=== PATIENT | female | born 1965 | race Caucasian/White ===

== ENCOUNTER 2020-03-06 10:18 | Outpatient (CLI) | payer OTHER, SELFPAY ==
[2020-03-06 10:54] LABS: Basophils Absolute Auto 0.1 K/mm3 (0.0-0.1); Eosinophils Absolute Auto 0.2 K/mm3 (0-0.3); Hematocrit 41.1 % (37.0-47.0); Hemoglobin 14.6 g/dL (12.0-15.0); Immature Granulocyte Absolute 0.02 K/mm3 (0.00-0.031); Immature Granulocyte Percent A 0.3 % (0-0.5); Lymphocytes Percent Auto 31.5 % (18.3-44.2); Mean Corpuscular HGB Conc 35.5 g/dl (32-36); Mean Corpuscular Hemoglobin 31.9 pg (26-34); Mean Corpuscular Volume 89.7 fl (80-100); Mean Platelet Volume 10.4 fl (7.4-10.4); Monocytes Absolute Auto 0.5 K/mm3 (0.1-0.6); Monocytes Percent Auto 6.6 % (2.6-8.5); Neutrophils Percent Auto 57.6 % (45.5-73.1); Platelet Count Result 295 k/mm3 (150-375); Red Blood Count 4.58 M/mm3 (4.2-5.4); Red Cell Distribution Width 13.3 % (11.5-14.5)
[2020-03-06 11:02] LABS: Hemoglobin A1C 5.3 % (<5.7)
[2020-03-06 11:06] LABS: Atypical Lymphocytes Present; Platelet Estimate Adequate (Adequate)
[2020-03-06 11:07] LABS: Alanine Aminotransferase 23 U/L (4-35); Albumin Level 4.3 g/dL (3.5-5.1); Alkaline Phosphatase 89 U/L (38-126); Anion Gap 7 mmol/L (8-16); Aspartate Amino Transferase 22 U/L (14-36); Bilirubin,Total 0.3 mg/dL (0.2-1.3); Blood Urea Nitrogen 15 mg/dL (7-17); Calcium 10.1 mg/dL (8.4-10.2); Carbon Dioxide 27 mmol/L (22-30); Chloride 106 mmol/L (98-107); Cholesterol 198 mg/dL (0-200); Estimated Glomerular Filt Rate > 60; Glucose 95 mg/dL (65-105); HDL Direct 38 mg/dL; Potassium 4.2 mmol/L (3.4-5.0); Sodium 140 mmol/L (137-145); Triglycerides 208 mg/dL (<150)
[2020-03-06 11:18] LABS: LDL Cholesterol Direct 116 mg/dL
[2020-03-06 11:36] LABS: Free T4 Free Thyroxine 0.69 ng/mL (0.78-2.19); Thyroid Stimulating Hormone 0.259 uIU/mL (0.465-4.680); Vitamin D 25 Hydroxy 47.6 ng/mL
[2020-03-06 11:50] LABS: Thyroid Stimulating Hormone Reflex 0.235 uIU/mL (0.465-4.68)
[2020-03-06 14:13] LABS: Free T4 Free Thyroxine Reflex 0.78 ng/dL (0.78-2.19)
[2020-03-06 14:54] LABS: Total Triiodothyronine (T3) 1.35 NG/ML (0.97-1.69)
== END 2020-03-06 10:19 | disposition home or self-care (01) ==
PROVIDERS: Visit Provider Obstetrics & Gynecology
DX: K92.1 Melena (principal); Z13.228 Encounter for screening for other metabolic disorders; Z13.29 Encounter for screening for other suspected endocrine disorder; Z13.0 Encounter for screening for diseases of the blood and blood-forming organs and certain disorders involving the immune mechanism
CPT/HCPCS: 36415; 80053; 80061; 82306; 83036; 84439; 84443; 84480; 85025

== ENCOUNTER 2020-03-16 16:23 | Outpatient (CLI) | payer OTHER, SELFPAY ==
[2020-03-22 12:47] LABS: Prolactin 6.5 ng/mL (***)
== END 2020-03-16 16:24 | disposition home or self-care (01) ==
LOC: ANHLAB 16:25
PROVIDERS: Visit Provider Obstetrics & Gynecology
DX: R68.89 Other general symptoms and signs (principal)
CPT/HCPCS: 36415; 84146

== ENCOUNTER 2020-03-28 10:33 | Outpatient (CLI) | payer OTHER, SELFPAY ==
[2020-03-28 11:47] LABS: Erythrocyte Sedimentation Rate 22 mm/hr (0-20)
[2020-03-28 11:58] LABS: Total Triiodothyronine (T3) 1.34 NG/ML (0.97-1.69)
[2020-03-28 12:08] LABS: Free T4 Free Thyroxine 0.84 ng/mL (0.78-2.19)
[2020-04-02 14:13] LABS: Thyrotropin Receptor Antibody <1.00 IU/L (<=2.00)
[2020-04-03 06:06] LABS: Thyroid Peroxidase Antibodies <1 IU/mL (<9)
== END 2020-03-28 10:34 | disposition home or self-care (01) ==
LOC: ANHLAB 10:35
PROVIDERS: Visit Provider Internal Medicine Endocrinology, Diabetes & Metabolism
DX: E05.90 Thyrotoxicosis, unspecified without thyrotoxic crisis or storm (principal)
CPT/HCPCS: 36415; 83519; 84439; 84443; 84480; 85652; 86376

== ENCOUNTER 2020-04-24 15:27 | Outpatient (CLI) | payer OTHER, SELFPAY ==
--- NOTE | ~2020-04-24 | US_ITS ---
EXAMINATION: US thyroid DATE: 04/24/2020 16:11 INDICATION: Thyrotoxicosis, unspecified without thyrotoxic crisis or storm. TECHNIQUE: Multiple ultrasound images of the thyroid were obtained. COMPARISON: None. FINDINGS: The right thyroid lobe measures 2.9 x 0.9 x 1.1 cm. The left thyroid lobe measures 3.9 x 1.2 x 1.4 c m. In the left thyroid lobe, there is a 6 mm solid, isoechoic, kspak-[id number] nodule with ill-defin ed margin without echogenic foci (TI-RADS TR3). IMPRESSION: 1. Small thyroid nodule, likely not clinically significant. No follow-up is needed. Reviewed, dictated and finalized at location B. INSPECTOR IMPRESSION: 1. Small thyroid nodule, likely not clinically significant. No follow-up is nee ded.
== END 2020-04-24 15:28 | disposition home or self-care (01) ==
PROVIDERS: PCP Internal Medicine Endocrinology, Diabetes & Metabolism; Visit Provider Internal Medicine Endocrinology, Diabetes & Metabolism
DX: E05.90 Thyrotoxicosis, unspecified without thyrotoxic crisis or storm (principal); E04.1 Nontoxic single thyroid nodule
CPT/HCPCS: 76536

== ENCOUNTER 2020-05-16 10:13 | Outpatient (CLI) | payer OTHER, SELFPAY ==
--- NOTE | ~2020-05-16 | DEXA_ITS ---
Bone Density Report Name: Nanda Espinosa Age: 55 Sex: Female Ethnicity: White Date of : 1965 Indication: postmenopausal; screening for osteoporosis; parental hip fracture; hysterectomy; Referring Provider: CASEY CERRATO Study: Bone densitometry was performed. Exam Date: May 16, 2020 Accession number: [id number] Bone Density: Region BMD T-score Z-score Classification AP Spine (L1-L4) 1.002 -0.4 0.7 Normal Femoral Neck (Left) 0.764 -0.8 0.3 Normal Total Hip (Left) 0.898 -0.4 0.4 Normal Femoral Neck (Right) 0.760 -0.8 0.3 Normal Total Hip (Right) 0.851 -0.7 0.0 Normal Total Hip Mean 0.875 -0.6 0.2 Normal World Health Organization criteria for BMD impression classify patients as: Normal (T-score at or above -1.0), Osteopenia (T-score between -1.0 and -2.5), or Osteoporosis (T-score at or below -2.5). 10-year Fracture Risk: FRAX not reported because: All T-scores for Spine Total, Hip Total, Femoral Neck at or above -1.0 Clinical Information Provided by Patient: Parent has had a hip fracture Smokes Has the following medical conditions: Hysterectomy Patient maximum height was 66.2 Menopause Age: 36 No regular weight bearing exercise Does not regularly consume dairy products Drinks caffeinated beverages Onset of menses at age 11 Number of children 4 Impression: The patient has normal bone mass. The patient has risk factors, including: parental hip fracture, smoking. Discussion: BONE DENSITY IS ABOVE THE MINIMUM DESIRABLE LEVEL AT ALL SKELETAL SITES TESTED. This patient?s bone mineral density is above the minimum desirable level (T-score -1.0 or better) at all sites measured. The patient should follow a healthful lifestyle (good nutrition with adequate calcium and vitamin D, and appropriate weight-bearing exercise). Follow-Up: Consider repeating this study in 5 years or sooner if there is some new clinical indication. Reported by: CALEB on 05/16/2020 10:39:00 AM. Reviewed, dictated and finalized at location AP[facility]
--- NOTE | ~2020-05-16 | MM_ITS ---
EXAMINATION: MM scrn claudette implant BI w jb HISTORY: Screening mammogram TECHNIQUE: Craniocaudal and mediolateral oblique 3-D tomosynthesis images with implant displacement a nd synthetic 2-D images were generated. Craniocaudal and mediolateral oblique views of the breasts wi thout implant displacement were obtained using full field digital mammography. CAD analysis was submi tted and interpreted. COMPARISON: No prior mammogram is available for comparison at this institution. BREAST PARENCHYMAL COMPOSITION: There are scattered areas of fibroglandular density. FINDINGS: There are bilateral subpectoral saline implants. There is no evidence of suspicious mass, c alcification, or architectural distortion to suggest malignancy in either breast. There has been no s uspicious interval change. IMPRESSION: 1. No mammographic evidence of malignancy. 2. Recommend routine screening mammography in one year. BI-RADS Category 1: Negative Reviewed, dictated and finalized at location A. ON OPERATOR
== END 2020-05-16 10:14 ==
LOC: MICIMG 10:14
PROVIDERS: Visit Provider Obstetrics & Gynecology
DX: Z12.31 Encounter for screening mammogram for malignant neoplasm of breast (principal); Z78.0 Asymptomatic menopausal state
CPT/HCPCS: 77063; 77067; 77080

== ENCOUNTER 2023-08-03 13:02 | Outpatient (CLI) | payer OTHER, SELFPAY ==
--- NOTE | ~2023-08-03 | MM_ITS ---
EXAMINATION: MM scrn claudette implant BI w jb HISTORY: Screening mammogram TECHNIQUE: Craniocaudal and mediolateral oblique 3-D tomosynthesis images with implant displacement a nd synthetic 2-D images were generated. Craniocaudal and mediolateral oblique views of the breasts wi thout implant displacement were obtained using full field digital mammography. CAD analysis was submi tted and interpreted. COMPARISON: No prior mammogram is available for comparison at this institution. 05/16/2020 BREAST PARENCHYMAL COMPOSITION: There are scattered areas of fibroglandular density. FINDINGS: There are bilateral subpectoral saline implants. There is no evidence of suspicious mass, c alcification, or architectural distortion to suggest malignancy in either breast. There has been no s uspicious interval change. IMPRESSION: 1. No mammographic evidence of malignancy. 2. Recommend routine screening mammography in one year. BI-RADS Category 1: Negative Reviewed, dictated and finalized at location A.
--- NOTE | ~2023-08-03 | DEXA_ITS ---
Bone Density Report Name: REBECCA JENKINS Age: 58 Sex: Female Ethnicity: White Date of : 1965 Indication: postmenopausal; screening for osteoporosis; parental hip fracture; hysterectomy; Referring Provider: SHIVANI ARENAS Study: Bone densitometry was performed. Exam Date: August 03, 2023 Accession number: [id number] Bone Density: Region BMD T-score Z-score Classification AP Spine (L1-L4) 1.007 -0.4 1.0 Normal Femoral Neck (Left) 0.763 -0.8 0.5 Normal Total Hip (Left) 0.881 -0.5 0.4 Normal Femoral Neck (Right) 0.760 -0.8 0.4 Normal Total Hip (Right) 0.828 -0.9 0.0 Normal Total Hip Mean 0.855 -0.7 0.2 Normal World Health Organization criteria for BMD impression classify patients as: Normal (T-score at or above -1.0), Osteopenia (T-score between -1.0 and -2.5), or Osteoporosis (T-score at or below -2.5). 10-year Fracture Risk: FRAX not reported because: All T-scores for Spine Total, Hip Total, Femoral Neck at or above -1.0 Previous Exams: Region Exam Age BMD T-score BMD Change BMD Change Date g/cm2 vs Baseline vs Previous AP Spine(L1-L4) 08/03/2023 58 1.007 -0.4 0.005 0.005 05/16/2020 55 1.002 -0.4 Total Hip(Left) 08/03/2023 58 0.881 -0.5 -0.016 -0.016 05/16/2020 55 0.898 -0.4 Total Hip(Right) 08/03/2023 58 0.828 -0.9 -0.023 -0.023 05/16/2020 55 0.851 -0.7 *Denotes significance at 95% confidence level, LSC for AP Spine = 0.022 g/cm2, LSC for Total Hip = 0.027 g/cm2 Clinical Information Provided by Patient: Parent has had a hip fracture Smokes Has used the following medications: Vitamin D Has the following medical conditions: Hysterectomy Patient maximum height was 67 Menopause Age: 36 No regular weight bearing exercise Does not regularly consume dairy products Drinks caffeinated beverages Onset of menses at age 11 Number of children 4 Impression: The patient has normal bone mass. The patient has risk factors, including: parental hip fracture, smoking. No significant bone loss was observed. Discussion: BONE DENSITY IS ABOVE THE MINIMUM DESIRABLE LEVEL AT ALL SKELETAL SITES TESTED. This patient?s bone mineral density is above the minimum desirable level (T-score -1.0 or better) at all sites measured. The patient should follow a healthful lifestyle (good nutrition with adequate calcium and vitamin D, and appropriate weight-bearing exercise). Follow-Up: Co
== END 2023-08-03 13:03 ==
LOC: MICIMG 13:03
PROVIDERS: PCP Obstetrics & Gynecology; Visit Provider Obstetrics & Gynecology
DX: Z12.31 Encounter for screening mammogram for malignant neoplasm of breast (principal); Z78.0 Asymptomatic menopausal state
CPT/HCPCS: 77063; 77067; 77080

== ENCOUNTER 2024-03-17 12:35 | Emergency (ER) | payer OTHER, SELFPAY ==
--- NOTE | ~2024-03-17 | XR_ITS ---
EXAMINATION: XR chest 2V DATE: 03/17/2024 13:09 INDICATION: Cough. Shortness of breath. TECHNIQUE: Frontal and lateral views of the chest were obtained. COMPARISON: None. FINDINGS: There is no pneumonia, pleural effusion, or pneumothorax. The heart size is normal. Breast implants are noted. IMPRESSION: 1. No acute cardiopulmonary disease. Reviewed, dictated and finalized at location B.
--- NOTE | 2024-03-17 12:39 | ED.URI ---
HPI - URI/Sore Throat General Chief Complaint: Upper Respiratory Infection Stated Complaint: cold symptoms Time Seen by Provider: 03/17/24 12:39 Source: patient Mode of arrival: ambulatory Limitations: no limitations History of Present Illness HPI Narrative: Nanda is a 58-year-old female patient presenting to the clinic today with complaints cough, mild shortness of breath, headache, sinus pressure, and chest congestion. She is a current smoker. Has a productive cough but swallows her sputum and does not know the color of it. Denies any known fever, chills, body aches. Denies any chest pain. MD elicited complaint: cough, nasal congestion (Shortness of breath) and other (Chest congestion, headache) Related Data Home Medications Medication Instructions Recorded Confirmed calcium carbonate (Calcium 500) 500 mg PO DAILY 03/06/20 03/17/24 cetirizine 10 mg capsule (Zyrtec) 10 mg PO DAILY 03/06/20 03/17/24 multivitamin 1 cap PO DAILY 03/06/20 03/17/24 cyanocobalamin (vitamin B-12) 1,000 mcg PO BID 03/28/20 03/17/24 1,000 mcg capsule biotin 1,000 mcg chewable tablet 1,000 mcg PO DAILY 03/07/21 03/17/24 Allergies Allergy/AdvReac Type Severity Reaction Status Date / Time Penicillins Allergy Severe Anaphylaxis Verified 03/17/24 12:55 azithromycin AdvReac Severe Abdominal Verified 03/17/24 12:55 Pain Sulfa (Sulfonamide AdvReac Unknown can not Verified 03/17/24 12:55 Antibiotics) recall Review of Systems Review of Systems: Pertinent positives per HPI. Patient denies any fever, chills, rash, headache, visual changes, dizziness, chest pain, palpitations, nausea, vomiting, diarrhea, constipation, abdominal pain, or any urinary issues. PMFSH Past Medical History Medical History Acid reflux Endometriosis Hematochezia x4 vaginal Surgical History Surgical History Breast implant status H/O: hysterectomy History of appendectomy History of bladder surgery Hx of tonsillectomy Status post exploratory laparotomy [place] teeth extracted Family History Family History Father Heart disease Hypertension Mother Cerebrovascular accident Hypertension Other COPD (chronic obstructive pulmonary disease) SOB (shortness of breath) Social History Social History Smoking packs per day: 1 Smoking cigarettes per day: 20.0 Years smoked: 20 Smoking pack-years: 20.00 Smoking status: Current every day smoker Drinks per week: 1 Substance use: never Gender identity (if verbalized by the patient): Female Spiritual care concerns: No Agree to blood products: Yes Comments At the time of my signature, I reviewed and agree with the nursing past medical, surgical, social, and family history. There is no relevant family history pertinent to the patient complaint. Exam Narrative: General: Well-developed, well nourished, in no apparent distress Head: Normocephalic, atraumatic Eyes: Pupils equally round and reactive to light bilaterally, EOM intact, sclera and conjunctive clear, no discharge, lids normal Ears: TMs intact and congested, ear canals clear, no drainage, grossly hearing normal. Nose: Nares patent, clear nasal discharge, moderate inflammation, no sinus tenderness. Mouth: Oral pharynx without lesions or masses, good dentition, MMM. Postnasal drip, tonsils surgically absent Neck: Supple, trachea midline, no enlargement of anterior or posterior cervical nodes, no thyroid masses or goiter palpable. Cardio: Regular rate and rhythm, s1 and s2 normal, no murmur appreciated. Resp: Faint rhonchi throughout lung porter with fine crackles in the right lower lobe, no wheezing or rubs Course Course Emergency Course: Portions of this record may have been created with voice recognition software. Level of Care: Express Care Visit Vital Signs Vital signs: Vital Signs Temperature 36.9 C 03/17/24 12:47 Pulse Rate 99 03/17/24 12:47 Respiratory Rate 18 03/17/24 12:47 Blood Pressure 131/70 03/17/24 12:47 Pulse Oximetry 95 03/17/24 12:47 Oxygen Delivery Room Air 03/17/24 12:47 Temperature 36.9 C 03/17/24 12:47 Pulse Rate 99 03/17/24 12:47 Respiratory Rate 18 03/17/24 12:47 Blood Pressure 131/70 03/17/24 12:47 Pulse Oximetry 95 03/17/24 12:47 Oxygen Delivery Room Air 03/17/24 12:47 Vital signs reviewed MDM - URI/Sore Throat MDM Narrative Medical decision making narrative: At the time of visit patient is resting comfortably on the exam table. Patient appears to be nontoxic. Labs: COVID and influenza testing was negative in the clinic today. Diagnostics: Chest x-ray negative for any sign of acute cardiopulmonary process. Plan: I suspect patient has URI/bronchitis. Prescription for prednisone, Tessalon Perles, and albuterol inhaler was sent to the pharmacy. Supportive measures were discussed with the patient and they voiced understanding discharge instructions and agrees to treatment plan. Return precautions reviewed Differential Diagnosis Differential diagnosis: Likely upper respiratory infection, otitis media, sinusitis, viral infection, bronchitis, influenza, pharyngitis and other (COVID) Lab Data Labs: Lab Results 03/17/24 Range/Units 13:29 POC Influenza A Ag Negative (Negative) POC Influenza B Ag Negative (Negative) POC SARS CoV-2 Ag Negative (Negative) Imaging Data Radiologist's impression: ITS Impressions Chest X-Ray 03/17/24 13:11 IMPRESSION: 1. No acute cardiopulmonary disease. Discharge Plan Discharge Clinical Impression: Bronchitis, Viral infection URI (upper respiratory infection) Qualifiers: URI type: unspecified URI Qualified Code(s): J06.9 - Acute upper respiratory infection, unspecified Patient Disposition: Home, Self-Care Condition: Stable Instructions: Antibiotic Form, Upper Respiratory Infection (ED), Acute Bronchitis (ED), Viral Syndrome (ED) Additional Instructions: COVID and influenza testing was negative in the clinic today. Chest x-rays negative for any sign of pneumonia. Take prescription medications only as prescribed-albuterol inhaler, prednisone, and Tessalon Perles May take Mucinex during the daytime and Tessalon Perles at night to suppress the cough and help you sleep Increase fluids and stay well hydrated Tylenol/motrin for pain/fever Flonase and OTC antihistamines as directed Vicks vapor rub to open sinuses Sinus rinses for congestion Cepacol spray, cough drops, throat lozenges, warm tea with honey/lemon, gargle salt water to soothe throat BRAT diet for diarrhea Clear liquids x 24 hours then advance as tolerated for nausea/vomiting Go to the ED if you develop a worsening in your condition- high fever not controlled by Tylenol or Motrin, dehydration, weakness, lethargy, shortness of breath, or chest pain. Follow up with your PCP in 3-5 days if symptoms persist. Prescriptions: New benzonatate 200 mg capsule 200 mg PO TID 7 Days Qty: 21 0RF prednisone 20 mg tablet 40 mg PO DAILY 5 Days Qty: 10 0RF albuterol sulfate 90 mcg/actuation HFA aerosol inhaler 2 puff inhalation Q4-6H PRN (Reason: shortness of breath or wheezing) 30 Days Qty: 8.5 0RF albuterol sulfate 2.5 mg /3 mL (0.083 %) solution for nebulization 2.5 mg inhalation Q6H PRN (Reason: shortness of breath or wheezing) 30 Days Qty: 360 0RF No Action calcium carbonate [Calcium 500] 500 mg calcium (1,250 mg) tablet 500 mg PO DAILY multivitamin Capsule 1 cap PO DAILY Zyrtec 10 mg capsule 10 mg PO DAILY biotin 1,000 mcg tablet,chewable 1,000 mcg PO DAILY cyanocobalamin (vitamin B-12) 1,000 mcg capsule 1,000 mcg PO BID Follow-up/Referrals: PHYSICIAN,EXERCISE TEACHER [Primary Care Provider] - Stand Alone Forms: Work/School Release IP Time of Disposition: 13:28 Quality NIHSS Nursing Documentation ED NIHSS nursing documentation: reviewed/agree
[2024-03-17 12:47] VITALS: BP 131/70; PULSE 99; RESP 18; TEMP 36.9; O2SAT 95
[2024-03-17 13:30] LABS: EDCOVIDSCREEN Negative (Negative); EDINFLUASCREEN Negative (Negative); EDINFLUBSCREEN Negative (Negative)
== END 2024-03-17 13:35 | disposition home or self-care (01) ==
PROVIDERS: Emergency Provider Nurse Practitioner Family
DX: J40 Bronchitis, not specified as acute or chronic (principal); B34.9 Viral infection, unspecified; J06.9 Acute upper respiratory infection, unspecified; Z20.822 Contact with and (suspected) exposure to COVID-19; F17.210 Nicotine dependence, cigarettes, uncomplicated; K21.9 Gastro-esophageal reflux disease without esophagitis; N80.9 Endometriosis, unspecified
CPT/HCPCS: 71046; 87426; 87804; 99213; G0463

== ENCOUNTER 2024-03-21 08:11 | Emergency (ER) | payer OTHER, SELFPAY ==
--- NOTE | 2024-03-21 08:20 | ED.URI ---
HPI - URI/Sore Throat General Chief Complaint: Upper Respiratory Infection Stated Complaint: feeling ill Time Seen by Provider: 03/21/24 08:20 Source: patient Mode of arrival: ambulatory Limitations: no limitations History of Present Illness HPI Narrative: 58-year-old female presents with complaint of continued cough, fatigue, shortness of breath with exertion. Patient seen at [facility] on March 17 and had a normal chest x-ray. Was given albuterol, prednisone, benzonatate. Has been doing albuterol neb twice a day. Reports no improvement and coughing. Patient has history of everyday smoker. Smokes approximately 1 pack a day. All systems reviewed and negative except as noted above. Related Data Home Medications Medication Instructions Recorded Confirmed calcium carbonate (Calcium 500) 500 mg PO DAILY 03/06/20 03/21/24 cetirizine 10 mg capsule (Zyrtec) 10 mg PO DAILY 03/06/20 03/21/24 multivitamin 1 cap PO DAILY 03/06/20 03/21/24 cyanocobalamin (vitamin B-12) 1,000 mcg PO BID 03/28/20 03/21/24 1,000 mcg capsule biotin 1,000 mcg chewable tablet 1,000 mcg PO DAILY 03/07/21 03/21/24 Allergies Allergy/AdvReac Type Severity Reaction Status Date / Time Penicillins Allergy Severe Anaphylaxis Verified 03/21/24 08:25 azithromycin AdvReac Severe Abdominal Verified 03/21/24 08:25 Pain Sulfa (Sulfonamide AdvReac Unknown can not Verified 03/21/24 08:25 Antibiotics) recall Review of Systems Review of Systems: CONSTITUTIONAL: Denies fever, chills, or sweats. reports fatigue. EYES: Denies visual changes, redness, or discharge. ENT: Denies rhinorrhea, congestion, sore throat, or otalgia. CARDIOVASCULAR: Denies chest pain, palpitations, or edema. RESPIRATORY: Reports cough and dyspnea with exertion. Reports chest congestion. GASTROINTESTINAL: Denies abdominal pain, nausea, vomiting, or diarrhea. GENITOURINARY: Denies dysuria or hematuria. SKIN: Denies rash or itching. MUSCULOSKELETAL: Denies back pain, joint pain, or myalgia. NEUROLOGIC: Denies headache, numbness, or weakness. PSYCHIATRIC: Denies anxiety or depression. All other systems reviewed are negative, except as documented in HPI. [facility] Past Medical History Medical History Acid reflux Endometriosis Hematochezia x4 vaginal Surgical History Surgical History Breast implant status H/O: hysterectomy History of appendectomy History of bladder surgery Hx of tonsillectomy Status post exploratory laparotomy [place] teeth extracted Family History Family History Father Heart disease Hypertension Mother Cerebrovascular accident Hypertension Other COPD (chronic obstructive pulmonary disease) SOB (shortness of breath) Social History Social History Smoking packs per day: 1 Smoking cigarettes per day: 20.0 Years smoked: 20 Smoking pack-years: 20.00 Smoking status: Current every day smoker Drinks per week: 1 Substance use: never Gender identity (if verbalized by the patient): Female Spiritual care concerns: No Agree to blood products: Yes Comments At time of signature, agree with nursing past medical, surgical, social and family history. There is no relevant family history pertinent to the presenting complaint. Exam Narrative: GENERAL: This is a well-nourished, well-developed patient, in no apparent distress. HEAD: normocephalic, atraumatic. EYES: PERRL. Sclera clear/white. Vision is grossly intact. EARS: External ears normal, auditory canals clear and without drainage, TMs normal without perforation. Hearing grossly intact. NOSE: External nose normal with no obvious nasal discharge, nares without redness, no rhinorrhea. THROAT: Mucous membranes moist, posterior pharynx clear. NECK: Neck supple, non-tender without lymphadenopathy, masses or thyromegaly. CARDIOVASCULAR: Regular rate and rhythm without murmurs, gallops, or rubs. RESPIRATORY: Coarse throughout all lung porter on expiration. Breath sounds equal bilaterally. No wheezes, rales, or rhonchi. SKIN: warm, Dry, intact with no suspicious lesions or rash, good texture and turgor. NEURO: awake, alert, and oriented to person, place and time. There were no obvious focal neurologic abnormalities. EXTREMITIES: No joint tenderness, effusion, or edema noted. Course Course Level of Care: Express Care Visit Vital Signs Vital signs: Vital Signs Temperature 36.6 C 03/21/24 08:21 Pulse Rate 80 03/21/24 08:21 Respiratory Rate 18 03/21/24 08:21 Blood Pressure 138/74 03/21/24 08:21 Pulse Oximetry 95 03/21/24 08:21 Oxygen Delivery Room Air 03/21/24 08:21 Temperature 36.6 C 03/21/24 08:21 Pulse Rate 80 03/21/24 08:21 Respiratory Rate 18 03/21/24 08:21 Blood Pressure 138/74 03/21/24 08:21 Pulse Oximetry 95 03/21/24 08:21 Oxygen Delivery Room Air 03/21/24 08:21 Reviewed MDM - URI/Sore Throat MDM Narrative Medical decision making narrative: negative chest x-ray on March 17. patient has coarse lung sounds. Reports no improvement with prednisone, albuterol. Will prescribe antibiotic today patient's symptoms and exam findings. Take educated patient that if this is viral bronchitis antibiotic will not help and she may continue to have cough for up to 6 weeks. Recommend follow-up with her primary care physician. Patient is aware of diagnosis, understands and agrees to treatment plan. Anticipatory guidance given. Patient agrees to follow-up as directed and is aware of reasons to seek care at the emergency department. Portions of this record may have been created with voice recognition software Differential Diagnosis Differential diagnosis: Likely upper respiratory infection, sinusitis, viral infection and bronchitis Discharge Plan Discharge Clinical Impression: Acute bronchitis Qualifiers: Bronchitis organism: unspecified organism Qualified Code(s): J20.9 - Acute bronchitis, unspecified Patient Disposition: Home, Self-Care Condition: Stable Instructions: Antibiotic Form, Acute Bronchitis (ED) Additional Instructions: Take antibiotic as prescribed. Continue prednisone, Tessalon Perle and albuterol. Take [id number] Mucinex as directed packaging. Drink at least 64 oz of water a day. Place cool mist humidifier in bedroom where you sleep. Drink hot tea with honey to soothe throat and treat cough. Follow-up with your primary care physician if symptoms are not improving. Prescriptions: New doxycycline hyclate 100 mg capsule 100 mg PO BID 7 Days Qty: 14 0RF No Action benzonatate 200 mg capsule 200 mg PO TID 7 Days Qty: 21 0RF prednisone 20 mg tablet 40 mg PO DAILY 5 Days Qty: 10 0RF albuterol sulfate 90 mcg/actuation HFA aerosol inhaler 2 puff inhalation Q4-6H PRN (Reason: shortness of breath or wheezing) 30 Days Qty: 8.5 0RF albuterol sulfate 2.5 mg /3 mL (0.083 %) solution for nebulization 2.5 mg inhalation Q6H PRN (Reason: shortness of breath or wheezing) 30 Days Qty: 360 0RF calcium carbonate [Calcium 500] 500 mg calcium (1,250 mg) tablet 500 mg PO DAILY multivitamin Capsule 1 cap PO DAILY Zyrtec 10 mg capsule 10 mg PO DAILY biotin 1,000 mcg tablet,chewable 1,000 mcg PO DAILY cyanocobalamin (vitamin B-12) 1,000 mcg capsule 1,000 mcg PO BID Follow-up/Referrals: PHYSICIAN,ORNAMENTAL IRON WORKER HELPER [Primary Care Provider] - Stand Alone Forms: Work/School Release IP Time of Disposition: 08:37
[2024-03-21 08:21] VITALS: BP 138/74; PULSE 80; RESP 18; TEMP 36.6; O2SAT 95
== END 2024-03-21 08:41 | disposition home or self-care (01) ==
PROVIDERS: Emergency Provider Nurse Practitioner Family; Referring Provider Emergency Medicine
DX: J20.9 Acute bronchitis, unspecified (principal); F17.210 Nicotine dependence, cigarettes, uncomplicated; K21.9 Gastro-esophageal reflux disease without esophagitis; N80.9 Endometriosis, unspecified
CPT/HCPCS: 99213; G0463

== ENCOUNTER 2024-11-19 15:09 | Emergency (ER) | payer OTHER, SELFPAY ==
--- NOTE | 2024-11-19 15:12 | ED.URI ---
HPI - URI/Sore Throat General Chief Complaint: Upper Respiratory Infection Stated Complaint: congestion Time Seen by Provider: 11/19/24 15:10 Source: patient Mode of arrival: ambulatory Limitations: no limitations History of Present Illness HPI Narrative: Nanda is a female patient presenting to the clinic today with complaints of cough, dizziness, headache, and congestion x3 days. Did an at-home COVID test and it was negative on . She reports she does feel short of breath at times with coughing. Denies any chest pain. No known fever. States she coughed up some yellow phlegm this morning but otherwise it has been clear. She smokes 1 pack per day-20 + years MD elicited complaint: sore throat and nasal congestion Related Data Allergies Allergy/AdvReac Type Severity Reaction Status Date / Time Penicillins Allergy Severe Anaphylaxis Verified 11/19/24 15:19 azithromycin AdvReac Severe Abdominal Verified 11/19/24 15:19 Pain Sulfa (Sulfonamide AdvReac Unknown can not Verified 11/19/24 15:19 Antibiotics) recall Review of Systems Review of Systems: Pertinent positives per HPI. Patient denies any fever, chills, rash, headache, visual changes, dizziness, chest pain, palpitations, nausea, vomiting, diarrhea, constipation, abdominal pain, or any urinary issues. PMFSH Past Medical History Medical History Hematochezia Acid reflux x4 vaginal Endometriosis Surgical History Surgical History Status post exploratory laparotomy [place] teeth extracted History of appendectomy History of bladder surgery Hx of tonsillectomy Breast implant status H/O: hysterectomy Family History Family History Father Heart disease Hypertension Mother Cerebrovascular accident Hypertension Other COPD (chronic obstructive pulmonary disease) SOB (shortness of breath) Social History Social History Smoking packs per day: 1 Smoking cigarettes per day: 20.0 Years smoked: 20 Smoking pack-years: 20.00 Smoking status: Current every day smoker Drinks per week: 1 Substance use: never Gender identity (if verbalized by the patient): Female Spiritual care concerns: No Agree to blood products: Yes Comments At the time of my signature, I reviewed and agree with the nursing past medical, surgical, social, and family history. There is no relevant family history pertinent to the patient complaint. Exam Narrative: General: Well-developed, well nourished, in no apparent distress Head: Normocephalic, atraumatic Eyes: Pupils equally round and reactive to light bilaterally, EOM intact, sclera and conjunctive clear, no discharge, lids normal Ears: TMs intact and congested, ear canals clear, no drainage, grossly hearing normal. Nose: Nares patent, green nasal discharge, mild inflammation, no sinus tenderness. Mouth: Oral pharynx without lesions or masses, good dentition, MMM. Neck: Supple, trachea midline, no enlargement of anterior or posterior cervical nodes, no thyroid masses or goiter palpable. Cardio: Regular rate and rhythm, s1 and s2 normal, no murmur appreciated. Resp: Lung sounds tight with expiratory wheezing, no rhonchi, rales, or rubs Course Course Emergency Course: Portions of this record may have been created with voice recognition software. Level of Care: Express Care Visit Vital Signs Vital signs: Vital Signs Temperature 36.4 C L 11/19/24 15:21 Pulse Rate 90 11/19/24 15:21 Respiratory Rate 18 11/19/24 15:21 Blood Pressure 131/75 11/19/24 15:21 Pulse Oximetry 96 11/19/24 15:21 Oxygen Delivery Room Air 11/19/24 15:21 Temperature 36.4 C L 11/19/24 15:21 Pulse Rate 90 11/19/24 15:21 Respiratory Rate 18 11/19/24 15:21 Blood Pressure 131/75 11/19/24 15:21 Pulse Oximetry 96 11/19/24 15:21 Oxygen Delivery Room Air 11/19/24 15:21 Vital signs reviewed MDM - URI/Sore Throat MDM Narrative Medical decision making narrative: At the time of visit patient is resting comfortably on the exam table. Patient appears to be nontoxic. Plan: I suspect patient has acute bronchitis. Patient is a smoker for over 20 years. Lung sounds tight with expiratory wheezing. Cough is productive at times with some yellow phlegm. Will cover for COPD exacerbation give prescription for doxycycline, prednisone, albuterol inhaler. Supportive measures were discussed with the patient and they voiced understanding discharge instructions and agrees to treatment plan. Return precautions reviewed Differential Diagnosis Differential diagnosis: Likely upper respiratory infection, otitis media, sinusitis, viral infection, bronchitis, influenza, pharyngitis and other (COVID) Discharge Plan Discharge Clinical Impression: Acute bronchitis Qualifiers: Bronchitis organism: unspecified organism Qualified Code(s): J20.9 - Acute bronchitis, unspecified Patient Disposition: Home Condition: Stable Instructions: Antibiotic Form, Acute Bronchitis (ED) Additional Instructions: Stop smoking. Take prescription medications only as prescribed-prednisone, doxycycline, and albuterol inhaler Increase fluids and stay well hydrated Tylenol/motrin for pain/fever Flonase and OTC antihistamines as directed Vicks vapor rub to open sinuses Sinus rinses for congestion Cepacol spray, cough drops, throat lozenges, warm tea with honey/lemon, gargle salt water to soothe throat BRAT diet for diarrhea Clear liquids x 24 hours then advance as tolerated for nausea/vomiting Go to the ED if you develop a worsening in your condition- high fever not controlled by Tylenol or Motrin, dehydration, weakness, lethargy, shortness of breath, or chest pain. Follow up with your PCP in 3-5 days if symptoms persist. Patient Language: Syriac Prescriptions: New doxycycline hyclate 100 mg capsule 100 mg PO BID 7 Days Qty: 14 0RF prednisone 20 mg tablet 40 mg PO DAILY 5 Days Qty: 10 0RF albuterol sulfate 90 mcg/actuation HFA aerosol inhaler 2 puff inhalation Q4-6H PRN (Reason: shortness of breath or wheezing) 30 Days Qty: 8.5 0RF Follow-up/Referrals: UNKNOWN,DOCTOR [Primary Care Provider] - Time of Disposition: 15:28 Quality NIHSS Nursing Documentation ED NIHSS nursing documentation: reviewed/agree
[2024-11-19 15:21] VITALS: BP 131/75; PULSE 90; RESP 18; TEMP 36.4; O2SAT 96
== END 2024-11-19 15:31 | disposition home or self-care (01) ==
PROVIDERS: Emergency Provider Nurse Practitioner Family
DX: J20.9 Acute bronchitis, unspecified (principal); F17.210 Nicotine dependence, cigarettes, uncomplicated; K21.9 Gastro-esophageal reflux disease without esophagitis; N80.9 Endometriosis, unspecified
CPT/HCPCS: 99213; G0463

== ENCOUNTER 2024-11-25 16:15 | Emergency (ER) | payer OTHER, SELFPAY ==
--- NOTE | ~2024-11-25 | XR_ITS ---
XR chest 2V Ordering provider: Kenny Yeager APRN History: 59 years Female with . sob/cough . Comparison: March 17, 2024 FINDINGS: MEDIASTINUM: The cardiac silhouette is not enlarged. LUNGS: No infiltrates, effusions or pneumothorax. OTHER: No free air under the diaphragm. IMPRESSION: No acute cardiopulmonary pathology. Reviewed, dictated and finalized at location A.
[2024-11-25 16:25] VITALS: BP 135/73; PULSE 78; RESP 18; TEMP 36.6; O2SAT 96
--- NOTE | 2024-11-25 16:43 | ED.SOB ---
HPI - SOB/Dyspnea General Chief Complaint: Upper Respiratory Infection Stated Complaint: SOB Time Seen by Provider: 11/25/24 16:30 Source: patient Mode of arrival: ambulatory Limitations: no limitations History of Present Illness HPI Narrative: Nanda is a 5-year-old female patient presenting to the clinic today with complaints of shortness of breath, cough, and chest congestion. She was seen almost 1 week ago and diagnosed with bronchitis/COPD exacerbation. She was having wheezing and shortness of breath at that time. She was prescribed prednisone, albuterol inhaler, and doxycycline. She reports she has finished the prednisone but still has a couple doses of the doxycycline left. States that she still has some shortness of breath, cough, and congestion. Denies any chest pain. Oxygen saturation is 96% on room air and she is able speak in full sentences. No fevers, chills, body aches. Related Data Allergies Allergy/AdvReac Type Severity Reaction Status Date / Time Penicillins Allergy Severe Anaphylaxis Verified 11/25/24 16:29 azithromycin AdvReac Severe Abdominal Verified 11/25/24 16:29 Pain Sulfa (Sulfonamide AdvReac Unknown can not Verified 11/25/24 16:29 Antibiotics) recall Review of Systems Review of Systems: Pertinent positives per HPI. Patient denies any fever, chills, rash, headache, visual changes, dizziness, chest pain, palpitations, nausea, vomiting, diarrhea, constipation, abdominal pain, or any urinary issues. [facility] Past Medical History Medical History Hematochezia Acid reflux x4 vaginal Endometriosis Surgical History Surgical History Status post exploratory laparotomy [place] teeth extracted History of appendectomy History of bladder surgery Hx of tonsillectomy Breast implant status H/O: hysterectomy Family History Family History Father Heart disease Hypertension Mother Cerebrovascular accident Hypertension Other COPD (chronic obstructive pulmonary disease) SOB (shortness of breath) Social History Social History Smoking packs per day: 1 Smoking cigarettes per day: 20.0 Years smoked: 20 Smoking pack-years: 20.00 Smoking status: Current every day smoker Drinks per week: 1 Substance use: never Gender identity (if verbalized by the patient): Female Spiritual care concerns: No Agree to blood products: Yes Comments At the time of my signature, I reviewed and agree with the nursing past medical, surgical, social, and family history. There is no relevant family history pertinent to the patient complaint. Exam Narrative: General: Well-developed, well nourished, in no apparent distress Head: Normocephalic, atraumatic Eyes: Pupils equally round and reactive to light bilaterally, EOM intact, sclera and conjunctive clear, no discharge, lids normal Ears: TMs intact and clear, ear canals clear, no drainage, grossly hearing normal. Nose: Nares patent, clear nasal discharge, mild inflammation, no sinus tenderness. Mouth: Oral pharynx without lesions or masses, good dentition, MMM. Neck: Supple, trachea midline, no enlargement of anterior or posterior cervical nodes, no thyroid masses or goiter palpable. Cardio: Regular rate and rhythm, s1 and s2 normal, no murmur appreciated. Resp: Faint expiratory wheezing, no rhonchi, rales, or rubs Course Course Emergency Course: Portions of this record may have been created with voice recognition software. Level of Care: Express Care Visit Vital Signs Vital signs: Vital Signs Temperature 36.6 C 11/25/24 16:25 Pulse Rate 78 11/25/24 16:25 Respiratory Rate 18 11/25/24 16:25 Blood Pressure 135/73 11/25/24 16:25 Pulse Oximetry 96 11/25/24 16:25 Oxygen Delivery Room Air 11/25/24 16:25 Temperature 36.6 C 11/25/24 16:25 Pulse Rate 78 11/25/24 16:25 Respiratory Rate 18 11/25/24 16:25 Blood Pressure 135/73 11/25/24 16:25 Pulse Oximetry 96 11/25/24 16:25 Oxygen Delivery Room Air 11/25/24 16:25 Vital signs reviewed MDM - SOB/Dyspnea MDM Narrative Medical decision making narrative: At the time of visit patient is resting comfortably on the exam table. Patient appears to be nontoxic. Patient has been having shortness of breath, cough, chest congestion for over 1 week. She was seen earlier this week in the clinic and given doxycycline, prednisone, and albuterol inhaler. States she has finished the prednisone yesterday. Is still having cough and congestion with some shortness of breath. States she really has not gotten to the relax at home as she has been having to work. Cough is nonproductive and she has been taking Mucinex. No fevers, chills, body aches. Denies any chest pain. History of COPD and she is a current smoker. Offer to do hand-held neb treatment in the clinic and patient declined at this time. States when she takes the breathing treatments it makes her dizzy and she does want to be dizzy and drive home. Wells criteria score low risk for PE. Diagnostics: Chest x-ray was performed and was negative for any acute cardiopulmonary process. Plan: I suspect patient still has bronchitis/COPD exacerbation. Prescription for albuterol nebulizer solution, Tessalon Perles, and today taper dose of prednisone. Supportive measures were discussed with the patient and they voiced understanding discharge instructions and agrees to treatment plan. Return precautions reviewed Well Criteria for PE: 0.0?points Low risk group: 1.3% chance of PE in an ED population. Another study assigned scores <=4 as ?PE Unlikely? and had a 3% incidence of PE. Differential Diagnosis Differential diagnosis: Likely acute exacerbation of chronic obstructive airways disease, congestive heart failure, community acquired pneumonia, asthma with exacerbation, pulmonary embolism and other (COVID) Imaging Data Radiologist's impression: ITS Impressions Chest X-Ray 11/25/24 16:44 IMPRESSION: No acute cardiopulmonary pathology. Discharge Plan Discharge Clinical Impression: Bronchitis Patient Disposition: Home Condition: Stable Instructions: Antibiotic Form, Acute Bronchitis (ED) Additional Instructions: X-rays negative for any sign of pneumonia. Take prescription medications only as prescribed-Tessalon Perles, albuterol nebulizer solution, and prednisone-10 day taper course Continue doxycycline as prescribed Increase fluids and stay well hydrated Tylenol/motrin for pain/fever Flonase and OTC antihistamines as directed Vicks vapor rub to open sinuses Sinus rinses for congestion Cepacol spray, cough drops, throat lozenges, warm tea with honey/lemon, gargle salt water to soothe throat BRAT diet for diarrhea Clear liquids x 24 hours then advance as tolerated for nausea/vomiting Go to the ED if you develop a worsening in your condition- high fever not controlled by Tylenol or Motrin, dehydration, weakness, lethargy, shortness of breath, or chest pain. Follow up with your PCP in 3-5 days if symptoms persist. Patient Language: Lao Prescriptions: New albuterol sulfate 2.5 mg /3 mL (0.083 %) solution for nebulization 2.5 mg inhalation Q6H 30 Days Qty: 360 0RF benzonatate 200 mg capsule 200 mg PO TID 7 Days Qty: 21 0RF prednisone 10 mg tablet 10 mg PO DAILY Qty: 30 0RF Rx Instructions: 60mg po daily on day 1, 40mg po daily on days 2-4, 30mg po daily on days 5-6, 20mg po daily on days 7-8, 10mg po daily on days 9-10 No Action doxycycline hyclate 100 mg capsule 100 mg PO BID 7 Days Qty: 14 0RF albuterol sulfate 90 mcg/actuation HFA aerosol inhaler 2 puff inhalation Q4-6H PRN (Reason: shortness of breath or wheezing) 30 Days Qty: 8.5 0RF Follow-up/Referrals: PHYSICIAN,ENERGY CONSERVATION DIRECTOR [Primary Care Provider] - Time of Disposition: 16:52 Quality NIHSS Nursing Documentation ED NIHSS nursing documentation: reviewed/agree
== END 2024-11-25 17:00 | disposition home or self-care (01) ==
PROVIDERS: Emergency Provider Nurse Practitioner Family
DX: J40 Bronchitis, not specified as acute or chronic (principal); J44.9 Chronic obstructive pulmonary disease, unspecified; F17.210 Nicotine dependence, cigarettes, uncomplicated; K21.9 Gastro-esophageal reflux disease without esophagitis; N80.9 Endometriosis, unspecified
CPT/HCPCS: 71046; 99213; G0463